=== PATIENT | female | born 1935 | race Caucasian/White ===

== ENCOUNTER → 2017-08-14 02:30 | Emergency (ER) | payer OTHER, BC | END | disposition home or self-care (01) | LOC: FER 02:30 | PROC: 2Y41X5Z Packing of Nasal Region using Packing Material (ICD-10-PCS; principal; 2017-08-14) | DX: R04.0 Epistaxis (principal); I10 Essential (primary) hypertension; E78.5 Hyperlipidemia, unspecified ==

== ENCOUNTER 2017-08-14 19:20 | Emergency (ER) | payer OTHER, BC ==
[2017-08-14] MEDS ORDERED: SODIUM CHLORIDE 1,000 ML IV ONE (19:24)
--- NOTE | 2017-08-14 19:24 | PDOC ---
History of Present Illness - General History Source: Patient Exam Limitations: No Limitations - History of Present Illness Initial Comments: 08/14/17 20:13 The patient is a 82 year old female with a significant PMH of Parkinson's disease, hypothyroidism, hypertension, GERD, depression, anxiety, Afib, and non hodgkin's lymphoma who presents to the emergency department with a nasal bleed earlier today . The patient reports that she had two nasal balloons placed yesterday at the hospital. She reports that the balloon that was in her left nostril came out this afternoon. The patient reports left nasal bleeding secondary to balloon coming out. The patient reports that when she arrived to the ER the bleeding had stopped. The patient reports that she is now experiencing lightheadedness and weakness. The patient denies chest pain, shortness of breath, headache and dizziness. She denies any fever, chills, nausea, vomit, diarrhea and constipation. She denies any urinary symptoms. The patient denies any other complaints. PAST MEDICAL HISTORY: Parkinson's disease, hypothyroidism, hypertension, GERD , depression, anxiety, Afib, and non hodgkin's lymphoma PAST SURGICAL HISTORY: none reported FAMILY HISTORY: no pertinent history SOCIAL HISTORY: Pt lives with family and is employed. MEDICATIONS: reviewed ALLERGIES: As per nursing notes General:(+)weakness and lightheaded. No fevers or chills, no weight loss HEENT: (+) nasal bleed. No change in vision. No sore throat,. No ear pain CardioVascular: No chest pain or shortness of breath Respiratory:No cough, or wheezing. Gastrointestinal: no nausea, vomiting, diarrhea or constipation, No rectal bleeding Genitourinary: No dysuria, hematuria, or frequency Musculoskeletal: No joint or muscle pain or swelling Neurologic: No headache, vertigo, dizziness or loss of consciousness Psychiatric: nor depression Skin: No rashes or easy bruising Endocrine: no increased thirst or abnormal weight change Allergic: no skin or latex allergy All other systems reviewed and normal GENERAL: The patient is awake, alert, and fully oriented, in no acute distress. HEAD: (+)nasal balloon in right nare. Left nare erythema in septum but no active bleeding. No blood in posterior oropharynx. Normal with no signs of trauma. EYES: Pupils equal, round and reactive to light, extraocular movements intact, sclera anicteric, conjunctiva clear. EXTREMITIES: Normal range of motion, no edema. NEUROLOGICAL: Normal speech, normal gait. PSYCH: Normal mood, normal affect. SKIN: Warm, Dry, normal turgor, no rashes or lesions noted. <Nicole Gore - Last Filed: 08/14/17 20:13> - General History Source: Patient Exam Limitations: No Limitations - History of Present Illness Initial Comments: A portion of this note was documented by scribe services under my direction. I have reviewed the details of the note, within reason, and agree with the documentation. The case summary and management plan written by me. 08/14/17 19:29 This is an 82-year-old female who was seen here approximately 18 hours ago for epistaxis. Patient had bilateral nasal balloons placed and one of them came out this afternoon. Patient said that she had bleeding but by the time she got to the ER it had stopped. Patient however was complaining of feeling a little lightheaded and weak so will send CBC, the BMP and give her a 500 mL bolus of normal saline. We will observe, reassess and evaluate results of workup 08/14/17 20:40 Reevaluation patient feels better. Fluid is finished blood work is unremarkable other than a slight decrease in her sodium of 132. Patient was told to increase his sodium in her diet over the next couple a days. Patient will follow-up with her ENT on Saturday. <Keith Handy I - Last Filed: 08/14/17 20:41> - General Chief Complaint: Nasal Bleeding Stated Complaint: NOSE BLEED Time Seen by Provider: 08/14/17 19:24 Past History <Nicole Gore - Last Filed: 08/14/17 20:13> - Past Medical History Anemia: No Asthma: No (bronchitis) Cancer: Yes (NON HODGKIN'S LYMPHOMA) Cardiac Disorders: Yes (A FIB) CVA: No COPD: No CHF: No Dementia: No Diabetes: No GI Disorders: Yes (gerd) Disorders: No HTN: Yes Hypercholesterolemia: No Liver Disease: No Seizures: No Thyroid Disease: Yes (HYPOTHYROIDISM) - Surgical History Abdominal Surgery: Yes Appendectomy: No Cardiac Surgery: No Cholecystectomy: No Lung Surgery: No Neurologic Surgery: No Orthopedic Surgery: No - Suicide/Smoking/Psychosocial Hx Smoking Status: No Smoking History: Former smoker Have you smoked in the past 12 months: No Number of Cigarettes Smoked Daily: 0 If you are a former smoker, when did you quit?: 20 years ago Hx Alcohol Use: No Drug/Substance Use Hx: No Substance Use Type: None Hx Substance Use Treatment: No <Keith Handy I - Last Filed: 08/14/17 20:41> - Past Medical History Allergies/Adverse Reactions: Allergies Allergy/AdvReac Type Severity Reaction Status Date / Time codeine [Codeine] Allergy Verified 06/28/16 14:53 Home Medications: Ambulatory Orders Amantadine HCl [Symmetrel -] 100 mg PO BID 06/08/13 Aspirin 81 mg PO DAILY 06/08/13 Pindolol 5 mg PO DAILY 06/08/13 Sertraline HCl [Zoloft -] 50 mg PO DAILY 06/08/13 Carbidopa/Levodopa 25/100 [Sinemet 25/100 -] 1.5 tab PO QID 06/28/16 Cyclosporine [Restasis] 1 each OP ASDIR 06/28/16 Diazepam [Valium] 5 mg PO DAILY PRN 06/28/16 Fluticasone Prop 0.05% Nasal [Flonase -] 1 - 2 spray NS ASDIR 06/28/16 Levothyroxine [Synthroid -] 75 mcg PO DAILY 06/28/16 Losartan Potassium [Cozaar] 25 mg PO BID 06/28/16 Ranitidine [Zantac -] 300 mg PO DAILY 06/28/16 Zolpidem Tartrate [Ambien] 5 mg PO DAILY 06/28/16 levoFLOXacin [Levaquin -] 500 mg PO DAILY #7 tablet 07/03/16 *Physical Exam - Vital Signs Last Vital Signs Temp Pulse Resp BP Pulse Ox 98.6 F 74 14 132/79 98 08/14/17 19:22 08/14/17 19:22 08/14/17 19:22 08/14/17 19:22 08/14/17 19:22 <Nicole Gore - Last Filed: 08/14/17 20:13> ED Treatment Course - LABORATORY CBC & Chemistry Diagram: 08/14/17 19:26 08/14/17 19:26 - ADDITIONAL ORDERS Additional order review: Laboratory Results 08/14/17 19:26 Sodium 132 L Potassium 3.7 Chloride 99 Carbon Dioxide 28 Anion Gap 5 L BUN 29 H D Creatinine 1.1 Random Glucose 102 Calcium 8.7 08/14/17 19:26 RBC 3.77 MCV 90.8 MCHC 33.8 RDW 13.6 MPV 8.1 <Nicole Gore - Last Filed: 08/14/17 20:13> - LABORATORY CBC & Chemistry Diagram: 08/14/17 19:26 08/14/17 19:26 <Keith Handy I - Last Filed: 08/14/17 20:41> *DC/Admit/Observation/Transfer - Attestations Scribe Attestion: 08/14/17 20:14 Documentation prepared by Nicole Gore, acting as medical coding technician for Keith Handy MD. <Nicole Gore - Last Filed: 08/14/17 20:13> - Discharge Dispostion Admit: No <Keith Handy I - Last Filed: 08/14/17 20:41> Diagnosis at time of Disposition: Epistaxis - Discharge Dispostion Disposition: HOME Condition at time of disposition: Good - Patient Instructions Additional Instructions: Do not blow your nose or put anything in your nose other than tonight before you go to bed you can put some Vaseline on a Q-tip and very gently place some Vaseline on the septum of your right nare. Return to the emergency department immediately with ANY new, persistent or worsening symptoms. Continue any medications as previously prescribed by your physician. You should follow up with your primary doctor as soon as possible regarding today's emergency department visit. . Please make sure your doctor reviews the results of your emergency evaluation. Thank you for coming to the Emergency Department today for your care. It was a pleasure to see you today. Please note that your evaluation is INCOMPLETE until you follow-up with your doctor.
[2017-08-14 19:26] VITALS: BP 132/79; PULSE 74; TEMP 98.6; BMI 22.6
[2017-08-14 19:53] LABS: HEMATOCRIT 34.2 % (32.4-45.2); HEMOGLOBIN 11.6 GM/dl (10.7-15.3); MCH 30.7 pg (25.7-33.7); MCHC 33.8 g/dl (32.0-36.0); MEAN CELL VOLUME 90.8 fl (80-96); MEAN PLT VOLUME 8.1 fl (7.5-11.1); PLATELET COUNT 260 K/MM3 (134-434); RBC 3.77 M/mm3 (3.60-5.2); RDW 13.6 % (11.6-15.6); WHITE BLOOD COUNT 6.3 K/mm3 (4.0-10.8)
[2017-08-14 19:58] LABS: ANION GAP 5 (8-16); BLOOD UREA NITROGEN 29 mg/dl (7-18); CALCIUM 8.7 mg/dl (8.4-10.2); CHLORIDE 99 mmol/L (98-107); CO2 28 mmol/L (22-28); CREATININE 1.1 mg/dl (0.6-1.3); GLUCOSE,RANDOM 102 mg/dl (74-106); POTASSIUM 3.7 mmol/L (3.5-5.1); SODIUM 132 mmol/L (136-145)
== END 2017-08-14 20:35 | disposition home or self-care (01) ==
LOC: FER 19:20
PROC: 3E0337Z Introduction of Electrolytic and Water Balance Substance into Peripheral Vein, Percutaneous Approach (ICD-10-PCS; principal; 2017-08-14)
DX: R04.0 Epistaxis (principal); G20 Parkinson's disease; E03.9 Hypothyroidism, unspecified; I10 Essential (primary) hypertension; K21.9 Gastro-esophageal reflux disease without esophagitis; I48.91 Unspecified atrial fibrillation; F41.8 Other specified anxiety disorders; C85.90 Non-Hodgkin lymphoma, unspecified, unspecified site; Z87.891 Personal history of nicotine dependence
CPT/HCPCS: 36415; 80048; 85027; 96360; 99282-25; J7030

== ENCOUNTER 2018-03-23 12:09 | Emergency (ER) | payer OTHER, BC ==
--- NOTE | 2018-03-23 12:19 | PDOC ---
Attending Attestation - Resident Resident Name: Sandro Mae - ED Attending Attestation I have performed the following: I have examined & evaluated the patient, The case was reviewed & discussed with the resident, I agree w/resident's findings & plan, Exceptions are as noted - HPI HPI: 03/23/18 15:03 Patient with an elevated blood pressure at home, vague chest pain, and headache. No known coronary artery disease, and no risk factors. He appears anxious Also a "cold sore" on her lip, and mild frontal headache. - Physicial Exam PE: 03/23/18 15:04 Physical exam is normal. Original blood pressure of 180/80 rapidly fell to 130/ 80 with rest and observation, and Symptoms completely resolved. - Medical Decision Making 03/23/18 15:05 Assessment: Transiently elevated blood pressure,, and current viral syndrome. Improved and asymptomatic Plan: Maintain blood pressure control. Return to ER if symptoms worsen or new symptoms develop. Otherwise follow-up with your rough rounder machine within 1 week. Fully ambulatory, cheerful, and in no pain or other distress upon discharge with to follow-up as directed
[2018-03-23 12:23] VITALS: TEMP 97.8; BMI 20.6
--- NOTE | 2018-03-23 12:36 | PDOC ---
History of Present Illness - General Chief Complaint: Chest Pain Stated Complaint: CHEST PAIN Time Seen by Provider: 03/23/18 12:11 - History of Present Illness Initial Comments: The patient is a 82F w/ a history of HTN who presents for evaluation of 40min of constant L chest pressure with radiation to L neck and head. The patient denies ever having had this type of pain before. Has not tried taking anything for the pain. Reports taking her medications today, including her anti- hypertensives. Denies taking her ASA today. Denies recent illness, fevers/chills , vision changes, SOB, abdominal pain, N/V/C/D, or changes in sensation. 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 03/23/18 19:23 Past History - Past Medical History Allergies/Adverse Reactions: Allergies Allergy/AdvReac Type Severity Reaction Status Date / Time codeine [Codeine] Allergy Verified 03/23/18 12:11 Home Medications: Ambulatory Orders Amlodipine Besylate 5 mg PO DAILY 03/23/18 Aspirin [Aspirin EC] 81 mg PO DAILY 03/23/18 Carbidopa/Levodopa 25/100 [Sinemet 25/100 -] 2 each PO Q3H PRN 03/23/18 Levothyroxine [Synthroid -] 75 mcg PO ASDIR 03/23/18 Levothyroxine [Synthroid -] 75 mcg PO DAILY 03/23/18 Lifitegrast [Xiidra] 1 each OU BID 03/23/18 Losartan Potassium 50 mg PO DAILY 03/23/18 Pindolol 5 mg PO DAILY 03/23/18 Sertraline HCl 50 mg PO DAILY 03/23/18 Zolpidem Tartrate [Ambien] mg PO PRN PRN 03/23/18 Anemia: No Asthma: No Cancer: Yes (NON HODGKIN'S LYMPHOMA) Cardiac Disorders: Yes (A FIB) CVA: No COPD: No CHF: No Dementia: No Diabetes: No GI Disorders: Yes (gerd) Disorders: No HTN: Yes Hypercholesterolemia: No Liver Disease: No Seizures: No Thyroid Disease: Yes (HYPOTHYROIDISM) - Surgical History Abdominal Surgery: Yes Appendectomy: No Cardiac Surgery: No Cholecystectomy: No Lung Surgery: No Neurologic Surgery: No Orthopedic Surgery: No - Suicide/Smoking/Psychosocial Hx Smoking Status: No Smoking History: Never smoked Have you smoked in the past 12 months: No Number of Cigarettes Smoked Daily: 0 If you are a former smoker, when did you quit?: 20 years ago Information on smoking cessation initiated: No Hx Alcohol Use: No Drug/Substance Use Hx: No Substance Use Type: None Hx Substance Use Treatment: No Review of Systems - Review of Systems Able to Perform ROS?: Yes Comments:: GENERAL/CONSTITUTIONAL: No fever or chills. No weakness HEAD, EYES, EARS, NOSE AND THROAT: No change in vision. No ear pain or discharge. No sore throat CARDIOVASCULAR: No shortness of breath RESPIRATORY: Denies cough, hemoptysis GASTROINTESTINAL: No nausea, vomiting, diarrhea or constipation GENITOURINARY: No dysuria, frequency, or change in urination MUSCULOSKELETAL: No joint or muscle swelling or pain. No neck or back pain SKIN: No rash NEUROLOGIC: No vertigo, loss of consciousness, or change in strength/sensation ENDOCRINE: No increased thirst. No abnormal weight change HEMATOLOGIC/LYMPHATIC: No anemia, easy bleeding, or history of blood clots ALLERGIC/IMMUNOLOGIC: No hives or skin allergy 03/23/18 19:28 Is the patient limited Citizen Of [place] proficient: No *Physical Exam - Vital Signs Last Vital Signs Temp Pulse Resp BP Pulse Ox 97.8 F 61 18 200/87 H 100 03/23/18 12:09 03/23/18 12:09 03/23/18 12:03/23/18 12:03/23/18 12:09 - Physical Exam Comments: GENERAL: Awake, alert, and fully oriented, in no acute distress HEAD: No signs of trauma, normocephalic, atraumatic EYES: PERRLA, EOMI, sclera anicteric, conjunctiva clear ENT: Hearing grossly normal, nares patent, oropharynx clear without exudates LUNGS: No distress, speaks full sentences, clear to auscultation bilaterally HEART: Regular rate and rhythm, normal S1 and S2, no murmurs appreciated, peripheral pulses normal and equal bilaterally ABDOMEN: Soft, nontender, normoactive bowel sounds. No guarding, no rebound EXTREMITIES : Normal inspection, Normal range of motion, no edema. No clubbing or cyanosis NEUROLOGICAL: Cranial nerves II through XII grossly intact. Normal speech, normal gait, no focal sensorimotor deficits SKIN: Warm, Dry, normal turgor, no rashes or lesions noted 03/23/18 19:29 Moderate Sedation - Procedure Monitoring Vital Signs: Procedure Monitoring Vital Signs Temperature 97.8 F 03/23/18 12:09 Pulse Rate 61 03/23/18 12:09 Respiratory Rate 18 03/23/18 12:09 Blood Pressure 200/87 H 03/23/18 12:09 O2 Sat by Pulse Oximetry (%) 100 03/23/18 12:09 ED Treatment Course - LABORATORY CBC & Chemistry Diagram: 03/23/18 12:34 03/23/18 12:34 Medical Decision Making - Medical Decision Making The patient is a 82F w/ a history of HTN who presents for evaluation of 40min of L chest pressure with radiation to L neck and head. Hypertensive urgency v ACS CMP, CBC, Cardiac enzymes, PTT ASA 162mg PO, chewed Nitro 0.4mg SL once 03/23/18 12:56 Vital Signs Temp Pulse Resp BP Pulse Ox 97.8 F 57 L 16 139/79 99 03/23/18 12:09 03/23/18 13:14 03/23/18 13:14 03/23/18 13:14 03/23/18 13:14 Patient reports improved symptoms s/p nitro. Chest pain resolved. Trop I neg Lytes wnl No leukocytosis No anemia No ENRIQUE LFTs wnl 03/23/18 13:46 Discharge instructions and return precautions given Plan for D/C w/ cardiology and PCP f/u Patient in agreement and verbalizes understanding Dispo: home 03/23/18 19:57 *DC/Admit/Observation/Transfer Diagnosis at time of Disposition: Hypertensive urgency - Discharge Dispostion Disposition: HOME Condition at time of disposition: Improved Decision to Admit order: No - Referrals Referrals: Cardiology, personal [Other] (personal commercial carpenter) - Patient Instructions Printed Discharge Instructions: DI for Malignant Hypertension Additional Instructions: You were seen in the Emergency Department today for chest pain that radiated to the head. You were found to have an acutely elevated blood pressure. Please review the handout provided at discharge. Continue to take your medications as prescribed. Follow up with your primary care provider/commercial carpenter within the next 1-3 days. Return to the Emergency Department if you develop fevers/chills, worsening symptoms, or any new/concerning symptoms. - Post Discharge Activity
[2018-03-23 12:50] LABS: BASO % 0.6 % (0-2.0); HEMATOCRIT 37.7 % (32.4-45.2); HEMOGLOBIN 12.8 GM/dl (10.7-15.3); LYMPH % 25.6 % (8-40); MCH 31.9 pg (25.7-33.7); MCHC 33.9 g/dl (32.0-36.0); MEAN CELL VOLUME 93.9 fl (80-96); MEAN PLT VOLUME 7.9 fl (7.5-11.1); MONO % 6.2 % (3.8-10.2); NEUT % 64.6 % (42.8-82.8); PLATELET COUNT 260 K/MM3 (134-434); RBC 4.01 M/mm3 (3.60-5.2); RDW 13.1 % (11.6-15.6); WHITE BLOOD COUNT 7.5 K/mm3 (4.0-10.8)
[2018-03-23] MEDS ORDERED: NITROGLYCERIN SUBLINGUAL 1/200 0.3 MG BTL SL ONE (12:52)
[2018-03-23] MEDS ORDERED: ASPIRIN 81 MG CHEWABLE TABLETS PO ONE ×2 (12:52→12:55)
[2018-03-23] MEDS ORDERED: NITROGLYCERIN SUBLINGUAL 1/150 0.4 MG TAB SL ONE (12:55)
[2018-03-23] MEDS ORDERED: NITROGLYCERIN SUBLINGUAL 1/150 0.4 MG TAB ONE (12:56)
[2018-03-23 13:03] LABS: INR 1.08 (0.82-1.09); PROTHROMBIN TIME (PATIENT) 12.1 SEC (10.2-13.0)
[2018-03-23 13:08] LABS: ALBUMIN 4.2 g/dl (3.5-5.0); ALK PHOS 46 U/L (32-92); ANION GAP 9 MMOL/L (8-16); BILIRUBIN,TOTAL 0.6 mg/dl (0.2-1.0); BLOOD UREA NITROGEN 28 mg/dl (7-18); CALCIUM 9.5 mg/dl (8.4-10.2); CHLORIDE 100 mmol/L (98-107); CO2 27 mmol/L (22-28); GLUCOSE,RANDOM 97 mg/dl (74-106); POTASSIUM 4.2 mmol/L (3.5-5.1); SGOT/AST 28 U/L (10-42); SGPT/ALT 5 U/L (10-40); SODIUM 136 mmol/L (136-145); TOT PROT 6.9 g/dl (6.4-8.3)
[2018-03-23 15:05] VITALS: BP 129/76; PULSE 60
--- NOTE | 2018-03-23 17:13 | EKG ---
Test Reason : Blood Pressure : / mmHG Vent. Rate : 060 BPM Atrial Rate : 060 BPM P-R Int : 118 ms QRS Dur : 072 ms QT Int : 428 ms P-R-T Axes : 041 027 068 degrees QTc Int : 428 ms NORMAL SINUS RHYTHM WITH SINUS ARRHYTHMIA NORMAL ECG WHEN COMPARED WITH ECG OF 01-JUL-2016 16:13, T WAVE INVERSION NO LONGER EVIDENT IN ANTERIOR LEADS Confirmed by LYDIA NORIEGA, CECILIA ([id number]) on 03/23/2018 5:13:39 PM Referred By: MICHELLE VALENTIN Confirmed By:CECILIA FREEMAN MD
== END 2018-03-23 14:52 | disposition home or self-care (01) ==
LOC: FER 12:09
DX: I16.0 Hypertensive urgency (principal); Z87.891 Personal history of nicotine dependence; E03.9 Hypothyroidism, unspecified; I48.91 Unspecified atrial fibrillation
CPT/HCPCS: 36415; 71045-TC-FY; 80053; 82550; 82553; 84484; 85025; 85610; 93005; 99285-25